=== PATIENT | male | born 1965 | race Caucasian/White ===

== ENCOUNTER 2021-03-10 17:14 | Inpatient (IN) | payer OTHER, MEDICAID, SELFPAY ==
[2021-03-10] VITALS (25 sets, daily range): BP systolic 82–132; BP diastolic 50–85; PULSE 65–94; RESP 12–33; TEMP 36.1–36.4; O2SAT 93–100; BMI 15.5
--- NOTE | 2021-03-10 17:46 | DI.RAD.S_ITS ---
PROCEDURE: XR CHEST 1V INDICATIONS: suspected sepsis TECHNIQUE: One view of the chest was acquired. COMPARISON: None. FINDINGS: Surgical changes and devices: None. Lungs and pleura: Fluffy right mid and lower lung alveolar opacity. The left lung is clear. No visible pleural effusion or pneumothorax. Mediastinum: Mediastinal contours appear normal. Heart size is normal. Bones and chest wall: No suspicious bony lesions. Overlying soft tissues appear unremarkable. IMPRESSION: 1. Right mid and lower lung alveolar opacity may be infectious or aspiration pneumonia. Dictated by: Paula Ledezma M.D. on 03/10/2021 at 18:31 Approved by: Paula Ledezma M.D. on 03/10/2021 at 18:32
[2021-03-10] MEDS: SODIUM CHLORIDE 0.9% 1,000 ML 1000 ML IV ×3 (17:52→22:20)
[2021-03-10 18:06] LABS: Add Manual Diff / Slide Review NO; Basophils Absolute Auto 0 /uL (0-100); Basophils Percent Auto 0.3 % (0-2); Eosinophils Absolute Auto 0 /uL (0-450); Hematocrit 35.6 % (41-53); Hemoglobin 12.4 g/dL (13.5-17.5); Lymphocytes Absolute Auto 300 /uL (1100-4500); Lymphocytes Percent Auto 3.8 % (25-40); Mean Corpuscular HGB Conc 34.7 % (30-36); Mean Corpuscular Hemoglobin 37.9 PG (26-34); Mean Corpuscular Volume 109.2 fL (80-100); Monocytes Absolute Auto 300 /uL (0-900); Monocytes Percent Auto 3.6 % (3-14); Neutrophils Absolute Auto 8000 /uL (1500-7000); Neutrophils Percent Auto 92.3 % (50-75); Platelet Count 157 X10^3/uL (150-400); Red Blood Cell Count 3.26 X10^6/uL (4.5-5.9); Red Cell Distribution Width 14.8 % (11.6-14.8); White Blood Cell Count 8.7 X10^3/uL (4.5-11.0)
--- NOTE | 2021-03-10 18:08 | ED.AMS ---
HPI - Altered Mental Status General Chief Complaint: Altered Mental Status Stated Complaint: low bp,lethargy Time Seen by Provider: 03/10/21 17:59 Source: family and EMS Mode of arrival: EMS Limitations: altered mental status History of Present Illness HPI narrative: Patient Is a 55-year-old male history of down syndrome resides at a family care facility presenting with decreasing mental status. Apparently he is typically verbal but requires assistance with daily living activities. I tenderness became nonverbal extremely lethargic area there was reports of a low glucose from the home however when EMS arrived glucose was 98 and he was hypotensive with systolic in the 70s. It has improved with fluids he now to systolic in the 100s. He is more awake but not able to answer questions or follow commands. Related Data Home Medications Medication Instructions Recorded Confirmed cyanocobalamin (vitamin B-12) 250 250 mcg PO DAILY 03/10/21 03/10/21 mcg tablet (Vitamin B-12) docusate sodium 100 mg capsule 100 mg PO DAILY 03/10/21 03/10/21 (Colace) levothyroxine 75 mcg tablet 75 mcg PO DAILY 03/10/21 03/10/21 (Synthroid) levothyroxine 75 mcg tablet 150 mcg PO WEEKLY 03/10/21 03/10/21 (Synthroid) lorazepam 0.5 mg tablet (Ativan) 0.5 mg PO BEDTIME PRN 03/10/21 03/10/21 multivitamin with minerals (Men's 1 tab PO DAILY 03/10/21 03/10/21 One Daily) Allergies Allergy/AdvReac Type Severity Reaction Status Date / Time ampicillin Allergy Unknown Verified 03/10/21 18:28 Review of Systems Review of Systems ROS Unobtainable: Unobtainable due to medical condition Patient History Medical History (Updated 03/10/21 @ 21:59 by ERICKA Cali) Down's syndrome Hypothyroidism Family History (Updated 03/10/21 @ 23:06 by ERICKA Cali) Father Pancreatic cancer Lung cancer Other Adopted Social History household members: caregiver Smoking Status: Never smoker alcohol intake: never Smoking Status: Never smoker Substance Use Type: does not use Exam Initial Vital Signs Initial Vital Signs: Vital Signs Pulse Rate 75 03/10/21 17:20 Pulse Oximetry 98 03/10/21 17:20 GENERAL: Alert 55-year-old male down syndrome HEENT: Head atraumatic,EOMI, pupils reactive, face symmetric, dry mucous membranes CARDIOVASCULAR: Regular rate and rhythm without murmurs, rubs or gallops. RESPIRATORY: Breath sounds equal bilaterally, no wheezes rales or rhonchi. ABDOMEN: Soft, nontender. Normoactive bowel sounds all 4 quadrants. No guarding or rebound. : No CVA tenderness EXTREMITIES: Normal range of motion, no clubbing or edema. Neurovascularly intact NEUROLOGICAL: No cranial nerve deficit moving all extremities SKIN: Warm, dry, no laceration, no petechiae, no rashes or lesions. Course Orders Ordered: ED Orders 03/10/21 17:20 Blood Culture Stat 03/10/21 17:46 XR chest 1V Stat EKG-12 Lead Stat 03/10/21 17:48 Complete Blood Count AUTO DIFF Stat Comprehensive Metabolic Panel Stat Lactate (Lactic Acid) Stat Lipase Stat Procalcitonin Stat Thyroid Stimulating Hormone Stat 03/10/21 18:17 Urine Culture Stat Urine Microscopic Stat 03/10/21 18:56 COVID19 - ADMIT (WRAPPER DIPPER swab/PCR) Stat 03/10/21 19:22 CT head/brain wo con Stat Acetaminophen (Acetaminophen 325 Mg Tablet) 650 mg PO Q6HR PRN PRN Reason: Fever/Mild Pain (1-3) Docusate Sodium (Docusate 100 Mg Capsule) 100 mg PO DAILY MERON Enoxaparin Sodium (Enoxaparin 40 Mg/0.4 Ml Syringe) 40 mg SUBCUT DAILY MERON Sodium Chloride (Normal Saline 0.9%) 1,000 mls @ 175 mls/hr IV CONT MERON Last Admin: 03/10/21 23:24 Dose: 175 mls/hr Documented by: JUAN Vancomycin HCl (Vancomycin) 750 mg in 150 mls @ 100 mls/hr IV Q12H MERON Levofloxacin (Levaquin) 750 mg in 150 mls @ 100 mls/hr IV Q24H MERON Levothyroxine Sodium (Levothyroxine 75 Mcg Tablet) 150 mcg PO DAILY@0600 MERON Lorazepam (Lorazepam 0.5 Mg Tablet) 0.5 mg PO BEDTIME PRN PRN Reason: Sleep Lorazepam (Lorazepam 2 Mg/Ml Inj) 0.5 mg IV Q6HR PRN PRN Reason: Anxiety Last Admin: 03/10/21 23:21 Dose: 0.5 mg Documented by: JUAN Naloxone HCl (Naloxone 0.4 Mg/Ml Vial) 0.2 mg IV Q2MIN PRN PRN Reason: Opiate Reversal Ondansetron HCl (Ondansetron 4 Mg/2 Ml Inj) 4 mg IV Q6HR PRN PRN Reason: Nausea And Vomiting Pantoprazole Sodium (Pantoprazole 40 Mg Vial) 40 mg IV DAILY MERON Vancomycin HCl (Vancomycin Per Pharmacy) 1 request MISC NOW ONE Stop: 03/10/21 21:53 Discontinued Medications Sodium Chloride (Normal Saline 0.9%) 1,000 mls @ 1,000 mls/hr IV BOLUS ONE Stop: 03/10/21 18:45 Last Infusion: 03/10/21 18:26 Dose: 0 mls/hr Documented by: Admin: 03/10/21 17:52 Dose: 1,000 mls/hr Documented by: TORIN Sodium Chloride (Normal Saline 0.9%) 1,000 mls @ 1,000 mls/hr IV BOLUS ONE Stop: 03/10/21 19:22 Last Infusion: 03/10/21 19:40 Dose: 0 mls/hr Documented by: Admin: 03/10/21 18:25 Dose: 1,000 mls/hr Documented by: TORIN Levofloxacin (Levaquin) 750 mg in 150 mls @ 100 mls/hr IV NOW ONE Stop: 03/10/21 20:34 Last Infusion: 03/10/21 21:36 Dose: 0 mls/hr Documented by: Admin: 03/10/21 19:18 Dose: 100 mls/hr Documented by: CORBY Sodium Chloride (Normal Saline 0.9%) 1,392 mls @ 464 mls/hr 30 ml/kg infuse over 3 hr (1392 ml) IV NOW ONE Stop: 03/10/21 22:13 Last Admin: 03/10/21 20:05 Dose: 464 mls/hr Documented by: CORBY Vancomycin HCl (Vancomycin) 750 mg in 150 mls @ 150 mls/hr IV NOW ONE Stop: 03/10/21 21:53 Last Admin: 03/10/21 23:24 Dose: 150 mls/hr Documented by: JUAN Sodium Chloride (Normal Saline 0.9%) 1,000 mls @ 1,000 mls/hr IV BOLUS ONE Stop: 03/10/21 21:53 Last Admin: 03/10/21 22:20 Dose: 1,000 mls/hr Documented by: JUAN Levofloxacin (Levaquin) 750 mg in 150 mls @ 100 mls/hr IV Q24H [facility] Levofloxacin (Levaquin) 150 mls @ 100 mls/hr IV Q24H [facility] Vital Signs Vital signs: Vital Signs - 8 hr 03/10/21 17:23 03/10/21 17:24 03/10/21 17:30 Temperature 97.6 F Pulse Rate 78 75 77 Respiratory Rate 22 14 13 Blood Pressure 88/51 L 92/50 L 104/57 L Pulse Oximetry 99 98 100 03/10/21 18:00 03/10/21 18:01 03/10/21 18:15 Temperature Pulse Rate 73 79 90 Respiratory Rate 14 13 18 Blood Pressure 100/52 L 101/55 L Pulse Oximetry 100 100 98 03/10/21 18:19 03/10/21 18:30 03/10/21 18:45 Temperature Pulse Rate 80 67 75 Respiratory Rate 18 12 13 Blood Pressure 102/52 L 90/53 L 90/52 L Pulse Oximetry 95 100 100 03/10/21 19:00 03/10/21 19:15 03/10/21 19:44 Temperature Pulse Rate 78 72 79 Respiratory Rate Blood Pressure 104/65 97/56 L Pulse Oximetry 98 100 100 03/10/21 19:45 03/10/21 20:00 03/10/21 20:13 Temperature Pulse Rate 71 80 85 Respiratory Rate 17 18 33 H Blood Pressure 82/55 L 110/71 Pulse Oximetry 100 95 96 03/10/21 20:16 03/10/21 20:30 03/10/21 20:46 Temperature Pulse Rate 94 H 65 84 Respiratory Rate 24 18 26 H Blood Pressure 88/61 L 86/50 L 89/53 L Pulse Oximetry 93 100 96 MDM - Altered Mental Status Lab Data Result diagrams: 03/10/21 17:48 03/10/21 17:48 Labs: Lab Results 03/10/21 03/10/21 03/10/21 Range/Units 17:48 17:48 17:48 WBC 8.7 (4.5-11.0) X10^3/uL RBC 3.26 L (4.5-5.9) X10^6/uL Hgb 12.4 L (13.5-17.5) g/dL Hct 35.6 L (41-53) % MCV 109.2 H (80-100) fL MCH 37.9 H (26-34) PG MCHC 34.7 (30-36) % RDW 14.8 (11.6-14.8) % Plt Count 157 (150-400) X10^3/uL Neut % (Auto) 92.3 H (50-75) % Lymph % (Auto) 3.8 L (25-40) % [place] % (Auto) 3.6 (3-14) % Eos % (Auto) 0.0 L (2-4) % Baso % (Auto) 0.3 (0-2) % Neut # (Auto) 8000 H (5589-8744) /uL Lymph # (Auto) 300 L (4893-6242) /uL [place] # (Auto) 300 (0-900) /uL Eos # (Auto) 0 (0-450) /uL Baso # (Auto) 0 (0-100) /uL Sodium 140 (137-145) mmol/L Potassium 3.6 (3.4-5.1) mmol/L Chloride 106 (98-107) mmol/L Carbon Dioxide 30 (22-32) mmol/L BUN 15 (9-20) mg/dL Creatinine 0.65 L (0.66-1.25) mg/dL Estimated GFR > 60.0 (>60) mL/min BUN/Creatinine Ratio 23.1 H (6-22) Glucose 66 L (70-100) mg/dL Lactate 3.3 H (0.7-2.1) mmol/L Calcium 8.5 (8.4-10.2) mg/dL Total Bilirubin 0.6 (0.2-1.3) mg/dL AST 26 (17-59) IU/L ALT 20 (<50) IU/L Alkaline Phosphatase 57 (38-126) U/L Total Protein 5.8 L (6.3-8.2) g/dL Albumin 2.9 L (3.5-5.0) g/dL Globulin 2.9 (1.7-4.1) g/dL Albumin/Globulin Ratio 1.0 (1.0-2.8) Lipase 53 (23-300) U/L Procalcitonin 0.31 (<0.5) ng/mL TSH (0.47-4.68) uIU/mL Urine RBC (0-5/HPF) Urine WBC (0-5/HPF) Ur Squamous Epith Cells (0-5/HPF) Urine Bacteria (None) Hyaline Casts (None) Granular Casts (None) Urine Mucus (Negative) Ur Culture Indicated? SARS-CoV-2 (PCR) (Negative) 03/10/21 03/10/21 03/10/21 Range/Units 17:48 18:17 18:56 WBC (4.5-11.0) X10^3/uL RBC (4.5-5.9) X10^6/uL Hgb (13.5-17.5) g/dL Hct (41-53) % MCV (80-100) fL MCH (26-34) PG MCHC (30-36) % RDW (11.6-14.8) % Plt Count (150-400) X10^3/uL Neut % (Auto) (50-75) % Lymph % (Auto) (25-40) % [place] % (Auto) (3-14) % Eos % (Auto) (2-4) % Baso % (Auto) (0-2) % Neut # (Auto) (6084-6756) /uL Lymph # (Auto) (9127-3590) /uL [place] # (Auto) (0-900) /uL Eos # (Auto) (0-450) /uL Baso # (Auto) (0-100) /uL Sodium (137-145) mmol/L Potassium (3.4-5.1) mmol/L Chloride (98-107) mmol/L Carbon Dioxide (22-32) mmol/L BUN (9-20) mg/dL Creatinine (0.66-1.25) mg/dL Estimated GFR (>60) mL/min BUN/Creatinine Ratio (6-22) Glucose (70-100) mg/dL Lactate (0.7-2.1) mmol/L Calcium (8.4-10.2) mg/dL Total Bilirubin (0.2-1.3) mg/dL AST (17-59) IU/L ALT (<50) IU/L Alkaline Phosphatase (38-126) U/L Total Protein (6.3-8.2) g/dL Albumin (3.5-5.0) g/dL Globulin (1.7-4.1) g/dL Albumin/Globulin Ratio (1.0-2.8) Lipase (23-300) U/L Procalcitonin (<0.5) ng/mL TSH 31.4 H (0.47-4.68) uIU/mL Urine RBC 5-10/hpf H (0-5/HPF) Urine WBC 5-10/hpf H (0-5/HPF) Ur Squamous Epith Cells 0-1 /hpf (0-5/HPF) Urine Bacteria Few (2-10) H (None) Hyaline Casts 1-5/lpf (None) Granular Casts 1-5/lpf (None) Urine Mucus 1+ H (Negative) Ur Culture Indicated? Specimen cultured SARS-CoV-2 (PCR) Negative (Negative) 03/10/21 Range/Units 20:10 WBC (4.5-11.0) X10^3/uL RBC (4.5-5.9) X10^6/uL Hgb (13.5-17.5) g/dL Hct (41-53) % MCV (80-100) fL MCH (26-34) PG MCHC (30-36) % RDW (11.6-14.8) % Plt Count (150-400) X10^3/uL Neut % (Auto) (50-75) % Lymph % (Auto) (25-40) % [place] % (Auto) (3-14) % Eos % (Auto) (2-4) % Baso % (Auto) (0-2) % Neut # (Auto) (9387-7445) /uL Lymph # (Auto) (5028-7238) /uL [place] # (Auto) (0-900) /uL Eos # (Auto) (0-450) /uL Baso # (Auto) (0-100) /uL Sodium (137-145) mmol/L Potassium (3.4-5.1) mmol/L Chloride (98-107) mmol/L Carbon Dioxide (22-32) mmol/L BUN (9-20) mg/dL Creatinine (0.66-1.25) mg/dL Estimated GFR (>60) mL/min BUN/Creatinine Ratio (6-22) Glucose (70-100) mg/dL Lactate 1.3 (0.7-2.1) mmol/L Calcium (8.4-10.2) mg/dL Total Bilirubin (0.2-1.3) mg/dL AST (17-59) IU/L ALT (<50) IU/L Alkaline Phosphatase (38-126) U/L Total Protein (6.3-8.2) g/dL Albumin (3.5-5.0) g/dL Globulin (1.7-4.1) g/dL Albumin/Globulin Ratio (1.0-2.8) Lipase (23-300) U/L Procalcitonin (<0.5) ng/mL TSH (0.47-4.68) uIU/mL Urine RBC (0-5/HPF) Urine WBC (0-5/HPF) Ur Squamous Epith Cells (0-5/HPF) Urine Bacteria (None) Hyaline Casts (None) Granular Casts (None) Urine Mucus (Negative) Ur Culture Indicated? SARS-CoV-2 (PCR) (Negative) Point of Care Testing Glucose POC 98 Imaging Data Chest x-ray: Radiologist's Impression: PROCEDURE:? XR CHEST 1V ? INDICATIONS:? suspected sepsis ? TECHNIQUE:? One view of the chest was acquired.? ? COMPARISON:? None. ? FINDINGS:? ? Surgical changes and devices:? None.? ? Lungs and pleura:? Fluffy right mid and lower lung alveolar opacity.? The left lung is clear.? No visible pleural effusion or pneumothorax. ? Mediastinum:? Mediastinal contours appear normal.? Heart size is normal.? ? Bones and chest wall:? No suspicious bony lesions.? Overlying soft tissues appear unremarkable.? ? IMPRESSION:? 1. Right mid and lower lung alveolar opacity may be infectious or aspiration pneumonia.? ? ? Dictated by: Paula Ledezma M.D. on 03/10/2021 at 18:31 ? ? Approved by: Paula Ledezma M.D. on 03/10/2021 at 18:32 ? ECG Data Interpretation: Possible atrial fibrillation loss of artifact although in using icy P-waves but rate is irregular EKG 2. artifact MDM Narrative Medical decision making narrative: Patient is found to have UTI and probable aspiration pneumonia and sepsis. Mom is at bedside he should she is not back at his baseline mental status. He continues to be hypotensive although it does seem to be responding to fluids. His long discussion with mom about need for possible vasopressors and code status. At this time she really does not want any aggressive measures to be taken but does agree with IV fluids and antibiotics. She would like him to be comfortable. I have filled out a POLST form with her. Discharge Plan Departure Patient Disposition: Admitted As Inpatient Clinical Impression: Acute UTI, Pneumonia Admit Date/Time: 03/10/21 20:56 Admit Provider: Dilcia Mijares
[2021-03-10 18:13] LABS: Alanine Aminotransferase 20 IU/L (<50); Albumin 2.9 g/dL (3.5-5.0); Alkaline Phosphatase 57 U/L (38-126); Aspartate Aminotransferase 26 IU/L (17-59); BUN Creatinine Ratio 23.1 (6-22); Bilirubin Total 0.6 mg/dL (0.2-1.3); Blood Urea Nitrogen 15 mg/dL (9-20); Calcium 8.5 mg/dL (8.4-10.2); Carbon Dioxide 30 mmol/L (22-32); Chloride 106 mmol/L (98-107); Estimated Glomerular Filt Rate > 60.0 mL/min (>60); Globulin 2.9 g/dL (1.7-4.1); Glucose 66 mg/dL (70-100); HEMOLYSIS 26 (0-50); Lactate (Lactic Acid) 3.3 mmol/L (0.7-2.1); Lipase 53 U/L (23-300); Potassium 3.6 mmol/L (3.4-5.1); Sodium 140 mmol/L (137-145); Total Protein 5.8 g/dL (6.3-8.2)
[2021-03-10 18:29] LABS: Procalcitonin 0.31 ng/mL (<0.5)
[2021-03-10 18:52] LABS: Bacteria Urine Few (2-10); Culture Indicated Urine Specimen Cultured; Granular Casts Urine 1-5/LPF; Hyaline Casts Urine 1-5/LPF; Mucus Urine 1+ (Negative); RBC Urine 5-10/HPF (0-5/HPF); Squamous Epithelial Cell Urine 0-1 /HPF (0-5/HPF); WBC Urine 5-10/HPF (0-5/HPF)
[2021-03-10] MEDS: levoFLOXacin 750 MG/150 ML PIGGYBACK 100 MG IV (19:18)
[2021-03-10 19:22] LABS: Thyroid Stimulating Hormone 31.4 uIU/mL (0.47-4.68)
--- NOTE | 2021-03-10 19:22 | DI.CT.S_ITS ---
PROCEDURE: CT HEAD/BRAIN WO CON INDICATIONS: decreased mental status TECHNIQUE: Noncontrast 4.5 mm thick angled axial sections acquired from the foramen magnum to the vertex, with coronal and sagittal reformats. For radiation dose reduction, the following was used: automated exposure control, adjustment of mA and/or kV according to patient size. COMPARISON: None. FINDINGS: Image quality: Excellent. CSF spaces: Basal cisterns are patent. No extra-axial fluid collections. The ventricles are symmetrically prominent. Brain: No intracranial bleeds or masses. There is increased cerebral volume loss for age, with resultant ventricular and sulcal prominence. There is focal hypodensity and loss of jenkins-white matter differentiation involving the white and jenkins matter of the right anterior temporal lobe. Similar focus of hypodensity is present in the anterior right temporal lobe subcortical white matter. There are periventricular and deep white matter chronic small vessel ischemic changes. There is intracranial internal carotid artery atherosclerosis. Skull and face: Calvarium and visualized facial bones appear intact, without suspicious lesions. Sinuses: Visualized sinuses and mastoids are clear. IMPRESSION: 1. No CT evidence of acute hemorrhage. 2. Hypodensities involving the right temporal and right frontal lobe suggesting prior infarcts, chronicity uncertain. Correlate with history and any prior imaging. Dictated by: Paula Ledezma M.D. on 03/10/2021 at 20:02 Approved by: Paula Ledezma M.D. on 03/10/2021 at 20:08
[2021-03-10 19:51] LABS: COVID19 - ADMIT (NP swab/PCR) Negative (Negative)
[2021-03-10 19:55] LABS: Reflexed Lactate in 2 Hours Y
[2021-03-10] MEDS: SODIUM CHLORIDE 0.9% 464 ML IV (20:05)
[2021-03-10 20:32] LABS: Lactate 2HR (Lactic Acid Rflx) 1.3 mmol/L (0.7-2.1)
--- NOTE | 2021-03-10 21:42 | P.HP_ITS ---
History of Present Illness History of Present Illness Date Patient Seen: 03/10/21 Time Patient Seen: 21:42 Chief complaint: low bp,lethargy Narrative: Edgar Rehman is a 55 year old male with profound down syndrome hypothyroidism, and a resident of [facility]'s adult family home, was brought into the emergency department with decreased responsiveness. Patient is unable to give me a history due to his being almost nonverbal and it was difficult to obtain hi story from his mother as well. Per report from the ED provider, the patient became very lethargic and nonverbal at his adult family home. Patient had a very soft blood pressure on presentation to the emergency department with a systolic in the 70s and was non communicative at that time. I have no other history on his presentation to the emergency department. Bruno was placed in the ED. The patient was found to have a urinary tract infection on his UA and chest x-ray seemed to point to a right lower lobe pneumonia probable aspiration. Patient is afebrile, blood pressure 130/85, heart rate 90, respirations 24, oxygen saturation of 98% on 3 L, his weight is 40.5 kg with a BMI 15.5. He is mildly anemic with a hemoglobin of 12.4 hematocrit of 35.6 platelet count 157 he has a mild left shift of 8000 neutrophils, his creatinine is 0.65, glucose 66, albumin 2.9, and a TSH of 31.4. UA indicates a year urinary tract infection with criteria for culture and COVID-19 PCR is negative. Patient History Medical History (Updated 03/10/21 @ 21:59 by ERICKA Cali) Down's syndrome Hypothyroidism Family & Social History Family History (Updated 03/10/21 @ 23:06 by ERICKA Cali) Father Pancreatic cancer Lung cancer Other Adopted Social History: Lives in an adult family home. Per the patient's adoptive mother, he lived with her until he was 50 when she was unable to care for him anymore. She states he has been at [facility] since July of this year. Tobacco & Substance use: Smoking Status Never smoker Substance Use Type does not use Meds Home Medications and Allergies Home Medications Medication Instructions Recorded Confirmed Type cyanocobalamin (vitamin B-12) 250 250 mcg PO DAILY 03/10/21 03/10/21 History mcg tablet (Vitamin B-12) docusate sodium 100 mg capsule 100 mg PO DAILY 03/10/21 03/10/21 History (Colace) levothyroxine 75 mcg tablet 75 mcg PO DAILY 03/10/21 03/10/21 History (Synthroid) levothyroxine 75 mcg tablet 150 mcg PO WEEKLY 03/10/21 03/10/21 History (Synthroid) lorazepam 0.5 mg tablet (Ativan) 0.5 mg PO BEDTIME PRN 03/10/21 03/10/21 History multivitamin with minerals (Men's 1 tab PO DAILY 03/10/21 03/10/21 History One Daily) Allergies Allergy/AdvReac Type Severity Reaction Status Date / Time ampicillin Allergy Unknown Verified 03/10/21 18:28 Review of Systems Review of Systems ROS: Yes unobtainable due to mental condition (Non-verbal) Exam Vital Signs (past 8 hours): - 03/10/21 17:20 03/10/21 17:23 03/10/21 17:24 Temperature 97.6 F Pulse Rate 75 78 75 Respiratory Rate 22 14 Blood Pressure 88/51 L 92/50 L Pulse Oximetry 98 99 98 03/10/21 17:30 03/10/21 18:00 03/10/21 18:01 Temperature Pulse Rate 77 73 79 Respiratory Rate 13 14 13 Blood Pressure 104/57 L 100/52 L Pulse Oximetry 100 100 100 03/10/21 18:15 03/10/21 18:19 03/10/21 18:30 Temperature Pulse Rate 90 80 67 Respiratory Rate 18 18 12 Blood Pressure 101/55 L 102/52 L 90/53 L Pulse Oximetry 98 95 100 03/10/21 18:45 03/10/21 19:00 03/10/21 19:15 Temperature Pulse Rate 75 78 72 Respiratory Rate 13 Blood Pressure 90/52 L 104/65 97/56 L Pulse Oximetry 100 98 100 03/10/21 19:44 03/10/21 19:45 03/10/21 20:00 Temperature Pulse Rate 79 71 80 Respiratory Rate 17 18 Blood Pressure 82/55 L Pulse Oximetry 100 100 95 03/10/21 20:13 03/10/21 20:16 03/10/21 20:30 Temperature Pulse Rate 85 94 H 65 Respiratory Rate 33 H 24 18 Blood Pressure 110/71 88/61 L 86/50 L Pulse Oximetry 96 93 100 Oxygen Delivery Method Nasal Cannula Oxygen Flow Rate 3 Narrative Exam Narrative: Gen: Alert, mildly agitated 55 y.o. very thin male, awake and moving HEENT: normocephalic, atraumatic, conjunctiva clear, appears to have some exudate on the right eye, sclera non-icteric, oral mucosa pink and moist Neck: supple, full ROM, no JVD, trachea is midline Resp: Lungs CTA, non-labored breathing CV: RRR, no murmur or rubs Abd: soft, non-tender, normoactive BTs Skin: no lesions or rashes, dry and intact Neuro: GCS 13 Alert/no focal deficits. Speech soft and garbled. Extremities: moves all 4 extremities, is ambulatory, negative Estevan?s sign Psyche: Unable to assess Objective Labs Result Diagrams: 03/10/21 17:48 03/10/21 17:48 Labs: Laboratory Results - last 24 hr 03/10/21 03/10/21 03/10/21 17:48 17:48 17:48 WBC 8.7 RBC 3.26 L Hgb 12.4 L Hct 35.6 L MCV 109.2 H MCH 37.9 H MCHC 34.7 RDW 14.8 Plt Count 157 Neut % (Auto) 92.3 H Lymph % (Auto) 3.8 L [place] % (Auto) 3.6 Eos % (Auto) 0.0 L Baso % (Auto) 0.3 Neut # (Auto) 8000 H Lymph # (Auto) 300 L [place] # (Auto) 300 Eos # (Auto) 0 Baso # (Auto) 0 Sodium 140 Potassium 3.6 Chloride 106 Carbon Dioxide 30 BUN 15 Creatinine 0.65 L Estimated GFR > 60.0 BUN/Creatinine Ratio 23.1 H Glucose 66 L Lactate 3.3 H Calcium 8.5 Total Bilirubin 0.6 AST 26 ALT 20 Alkaline Phosphatase 57 Total Protein 5.8 L Albumin 2.9 L Globulin 2.9 Albumin/Globulin Ratio 1.0 Lipase 53 Procalcitonin 0.31 TSH Urine RBC Urine WBC Ur Squamous Epith Cells Urine Bacteria Hyaline Casts Granular Casts Urine Mucus Ur Culture Indicated? SARS-CoV-2 (PCR) 03/10/21 03/10/21 03/10/21 17:48 18:17 18:56 WBC RBC Hgb Hct MCV MCH MCHC RDW Plt Count Neut % (Auto) Lymph % (Auto) [place] % (Auto) Eos % (Auto) Baso % (Auto) Neut # (Auto) Lymph # (Auto) [place] # (Auto) Eos # (Auto) Baso # (Auto) Sodium Potassium Chloride Carbon Dioxide BUN Creatinine Estimated GFR BUN/Creatinine Ratio Glucose Lactate Calcium Total Bilirubin AST ALT Alkaline Phosphatase Total Protein Albumin Globulin Albumin/Globulin Ratio Lipase Procalcitonin TSH 31.4 H Urine RBC 5-10/hpf H Urine WBC 5-10/hpf H Ur Squamous Epith Cells 0-1 /hpf Urine Bacteria Few (2-10) H Hyaline Casts 1-5/lpf Granular Casts 1-5/lpf Urine Mucus 1+ H Ur Culture Indicated? Specimen cultured SARS-CoV-2 (PCR) Negative 03/10/21 20:10 WBC RBC Hgb Hct MCV MCH MCHC RDW Plt Count Neut % (Auto) Lymph % (Auto) [place] % (Auto) Eos % (Auto) Baso % (Auto) Neut # (Auto) Lymph # (Auto) [place] # (Auto) Eos # (Auto) Baso # (Auto) Sodium Potassium Chloride Carbon Dioxide BUN Creatinine Estimated GFR BUN/Creatinine Ratio Glucose Lactate 1.3 Calcium Total Bilirubin AST ALT Alkaline Phosphatase Total Protein Albumin Globulin Albumin/Globulin Ratio Lipase Procalcitonin TSH Urine RBC Urine WBC Ur Squamous Epith Cells Urine Bacteria Hyaline Casts Granular Casts Urine Mucus Ur Culture Indicated? SARS-CoV-2 (PCR) Assessment & Plan Assessment & Plan narrative: Maximus Rehman is admitted to the inpatient unit for treatment of a urinary tract infection and a probable aspiration pneumonia. 1. Urinary tract infection and a probable aspiration pneumonia acute and present on admission * Patient was initiated on IV Levaquin 750 mg once daily and IV vancomycin. This will be continued * Patient will need to be further assessed for swallowing given history of aspiration and current altered mental state * Bruno has been placed 2. Hypothyroidism, very elevated TSH, present on admission * TSH was 31.4 * Have ordered a free T4 however the patient was not cooperative with a lab draw this evening will drawn the morning with the rest of his labs * He is written for receiving levothyroxine 150 mg once a week which does not seem to be therapeutic. I have ordered this to start daily. 3. Down syndrome, chronic * We have to rely on communication with his mother for his needs 4. Advance care planning * His mother Dilcia Fountain is his DPOA. I reviewed the pulse that was completed with her in the emergency department which stated he was to be DNR/DNI, comfort measures only. After more discussion with her he continues to be DNR DNI however she does want limited interventions such as antibiotics. I have included a revised POLST is for her to sign in the morning. VTE Prophylaxis: Wells risk score 1.5 Enoxaparin 40 mg subQ once daily Patient is admitted to the inpatient service due to the severity of disease, risks of further disease progression and this stay is expected to exceed 2 midnights. FEN: IV fluids: NS at 100 ml/hour, diet: NPO, otherwise general, labs: CBC, BMP, am Consultants None Dispo: probable discharge back to [facility] Code status: DNR/DNI as discussed with the patient's mother and DPOA, Selena Fountain. [X] I have utilized all available immediate resources to obtain, update, or review of the patient's current medications COVID-19 COVID-19 status: Negative Result date/Date tested (Pos, Neg/Pending): 03/10/21 Time Spent With Patient Critical Care time: I spent a total of [] minutes of critical care time on this patient's care today; this time is exclusive of procedural time. Scores GCS Demetrius coma scale eye opening: Spontaneous [place] coma scale verbal response: Confused Demetrius coma scale motor response: Localising [place] coma scale total score: 13 Quality MIPS - Admit I confirm the patient?s Advance Care Plan is present, Code status is documented, Surrogate decision maker is in patient?s record [If Yes, STOP here]: Yes MIPS - DC The patient has current or prior documentation of left ventricular ejection fraction (LVEF) less than 40%, or moderate or severely depressed left ventricular systolic function.: No
[2021-03-10] MEDS: LORazepam 2 MG/ML INJ 0.5 MG IV (23:21)
[2021-03-10] MEDS: SODIUM CHLORIDE 0.9% 1,000 ML 175 ML IV (23:24)
[2021-03-10] MEDS: VANCOMYCIN 750 MG/150 ML PIGGYBACK 150 MG IV (23:24)
[2021-03-11] VITALS (8 sets, daily range): BP systolic 90–129; BP diastolic 69–96; PULSE 40–81; RESP 13–17; TEMP 36.5–37.7; O2SAT 93–100
--- NOTE | 2021-03-11 06:20 | PC.NURSE ---
patient arrived from ED visibly anxious and agitated. mother contacted to complete admission. frequent reassurance and stimuli reduction aided in calming patient and making comfortable. physical patient care difficult as patient is extremely fidgety with sudden, jerking movements combined with anxiety of general situation and place. recoils when touched unless generous warnings and reassurances beforehand are used. attempts to remove blood pressure cuffs and frequently removes nasal cannula. last O2 sat 93% on RA, leaving nasal cannula off as patient will immediately remove it upon leaving room. lab unable to complete draws due to patient moving away from equipment as best they can, provider notified. patient is now calm and resting comfortably in bed.
[2021-03-11] MEDS: SODIUM CHLORIDE 0.9% 1,000 ML 175 ML IV ×3 (06:47→18:29)
[2021-03-11] MEDS: VANCOMYCIN 750 MG/150 ML PIGGYBACK 150 MG IV (09:02)
[2021-03-11] MEDS: ENOXAPARIN 40 MG/0.4 ML SYRINGE SUBCUT (09:03)
[2021-03-11] MEDS: PANTOPRAZOLE 40 MG VIAL IV (09:03)
[2021-03-11 09:34] LABS: Add Manual Diff / Slide Review NO; Basophils Absolute Auto 0 /uL (0-100); Basophils Percent Auto 0.3 % (0-2); Eosinophils Absolute Auto 0 /uL (0-450); Eosinophils Percent Auto 0.3 % (2-4); Hematocrit 30.4 % (41-53); Hemoglobin 10.6 g/dL (13.5-17.5); Lymphocytes Absolute Auto 600 /uL (1100-4500); Lymphocytes Percent Auto 4.6 % (25-40); Mean Corpuscular HGB Conc 34.8 % (30-36); Mean Corpuscular Hemoglobin 37.4 PG (26-34); Mean Corpuscular Volume 107.6 fL (80-100); Monocytes Absolute Auto 400 /uL (0-900); Monocytes Percent Auto 2.8 % (3-14); Neutrophils Absolute Auto 12100 /uL (1500-7000); Platelet Count 153 X10^3/uL (150-400); Red Blood Cell Count 2.83 X10^6/uL (4.5-5.9); Red Cell Distribution Width 14.7 % (11.6-14.8); White Blood Cell Count 13.1 X10^3/uL (4.5-11.0)
[2021-03-11 09:42] LABS: BUN Creatinine Ratio 19.7 (6-22); Blood Urea Nitrogen 12 mg/dL (9-20); Calcium 8.2 mg/dL (8.4-10.2); Carbon Dioxide 25 mmol/L (22-32); Chloride 111 mmol/L (98-107); Estimated Glomerular Filt Rate > 60.0 mL/min (>60); Glucose 82 mg/dL (70-100); HEMOLYSIS < 15 (0-50); Sodium 140 mmol/L (137-145)
[2021-03-11 10:00] LABS: Free T4, Direct Thyroxine 1.13 ng/dL (0.78-2.19)
--- NOTE | 2021-03-11 10:11 | P.PN_ITS ---
Subjective Subjective Date Patient Seen: 03/11/21 Time Patient Seen: 10:12 Interval history: Patient unable to participate in subjective exam. Exam Vital Signs (past 8 hours): - 03/11/21 04:06 03/11/21 07:40 03/11/21 07:58 Temperature 98.5 F 98.0 F Pulse Rate 75 40 L 52 L Respiratory Rate 17 13 Blood Pressure 129/91 H 104/83 Pulse Oximetry 93 93 100 Oxygen Delivery Method Nasal Cannula Oxygen Flow Rate 0 Narrative Exam Narrative: Gen: Alert, 55 y.o. very thin male HEENT: normocephalic, atraumatic, conjunctiva clear, appears to have some exudate on the right eye, sclera non-icteric, oral mucosa pink and moist Neck: supple, full ROM, no JVD, trachea is midline Resp: Lungs CTA, non-labored breathing CV: RRR, no murmur or rubs Abd: soft, non-tender, normoactive BTs : Bruno in place Skin: no lesions or rashes, dry and intact Neuro:Alert/no focal deficits. Speech soft and garbled. occasional yes/no appropriate to questions. Extremities: moves all 4 extremities, no edema or joint effusions Psyche:? Unable to assess Objective Labs Result Diagrams: 03/11/21 08:55 03/11/21 08:55 Labs: Laboratory Results - last 24 hr 03/10/21 03/10/21 03/10/21 17:48 17:48 17:48 WBC 8.7 RBC 3.26 L Hgb 12.4 L Hct 35.6 L MCV 109.2 H MCH 37.9 H MCHC 34.7 RDW 14.8 Plt Count 157 Neut % (Auto) 92.3 H Lymph % (Auto) 3.8 L [place] % (Auto) 3.6 Eos % (Auto) 0.0 L Baso % (Auto) 0.3 Neut # (Auto) 8000 H Lymph # (Auto) 300 L [place] # (Auto) 300 Eos # (Auto) 0 Baso # (Auto) 0 Sodium 140 Potassium 3.6 Chloride 106 Carbon Dioxide 30 BUN 15 Creatinine 0.65 L Estimated GFR > 60.0 BUN/Creatinine Ratio 23.1 H Glucose 66 L Lactate 3.3 H Calcium 8.5 Total Bilirubin 0.6 AST 26 ALT 20 Alkaline Phosphatase 57 Total Protein 5.8 L Albumin 2.9 L Globulin 2.9 Albumin/Globulin Ratio 1.0 Lipase 53 Procalcitonin 0.31 TSH Urine RBC Urine WBC Ur Squamous Epith Cells Urine Bacteria Hyaline Casts Granular Casts Urine Mucus Ur Culture Indicated? SARS-CoV-2 (PCR) 03/10/21 03/10/21 03/10/21 17:48 18:17 18:56 WBC RBC Hgb Hct MCV MCH MCHC RDW Plt Count Neut % (Auto) Lymph % (Auto) [place] % (Auto) Eos % (Auto) Baso % (Auto) Neut # (Auto) Lymph # (Auto) [place] # (Auto) Eos # (Auto) Baso # (Auto) Sodium Potassium Chloride Carbon Dioxide BUN Creatinine Estimated GFR BUN/Creatinine Ratio Glucose Lactate Calcium Total Bilirubin AST ALT Alkaline Phosphatase Total Protein Albumin Globulin Albumin/Globulin Ratio Lipase Procalcitonin TSH 31.4 H Urine RBC 5-10/hpf H Urine WBC 5-10/hpf H Ur Squamous Epith Cells 0-1 /hpf Urine Bacteria Few (2-10) H Hyaline Casts 1-5/lpf Granular Casts 1-5/lpf Urine Mucus 1+ H Ur Culture Indicated? Specimen cultured SARS-CoV-2 (PCR) Negative 03/10/21 03/11/21 03/11/21 20:10 08:55 08:55 WBC 13.1 H D RBC 2.83 L Hgb 10.6 L Hct 30.4 L MCV 107.6 H MCH 37.4 H MCHC 34.8 RDW 14.7 Plt Count 153 Neut % (Auto) 92.0 H Lymph % (Auto) 4.6 L [place] % (Auto) 2.8 L Eos % (Auto) 0.3 L Baso % (Auto) 0.3 Neut # (Auto) 63114 H Lymph # (Auto) 600 L [place] # (Auto) 400 Eos # (Auto) 0 Baso # (Auto) 0 Sodium 140 Potassium 4.0 Chloride 111 H Carbon Dioxide 25 BUN 12 Creatinine 0.61 L Estimated GFR > 60.0 BUN/Creatinine Ratio 19.7 Glucose 82 Lactate 1.3 Calcium 8.2 L Total Bilirubin AST ALT Alkaline Phosphatase Total Protein Albumin Globulin Albumin/Globulin Ratio Lipase Procalcitonin TSH Urine RBC Urine WBC Ur Squamous Epith Cells Urine Bacteria Hyaline Casts Granular Casts Urine Mucus Ur Culture Indicated? SARS-CoV-2 (PCR) PFSH Medical History (Updated 03/10/21 @ 21:59 by ERICKA Cali) Down's syndrome Hypothyroidism Family History (Updated 03/10/21 @ 23:06 by ERICKA Cali) Father Pancreatic cancer Lung cancer Other Adopted Social History household members: caregiver Smoking Status: Never smoker alcohol intake: never Assessment & Plan Assessment & Plan narrative: Maximus Rehman is admitted to the inpatient unit for treatment of a urinary tract infection and a probable aspiration pneumonia. 1. Urinary tract infection and a probable aspiration pneumonia acute and present on admission -Patient was initiated on IV Levaquin 750 mg once daily and IV vancomycin initially. Discontinue vanco today, no risk factors. Continue Levaquin and follow up cultures. -speech therapy eval ordered given possible aspiration. -Bruno has been placed, can remove tomorrow if urine output adequate. 2. Hypothyroidism, very elevated TSH, present on admission -TSH was 31.4, freet4 if 1.13. -home dosing is levothyroxine 150 mg once a week. Given TSH, change to 37.5 mcg daily instead. (slight increase). Repeat TSH and free t4 in 4-6 weeks as an o utpatient. 3. Down syndrome, chronic Dispo: probable discharge back to [facility] in 1-2 once mentation improves to baseline. Code status: DNR/DNI as discussed with the patient's mother and Selena RESENDEZ. Time Spent With Patient Critical Care time: I spent a total of [] minutes of critical care time on this patient's care today; this time is exclusive of procedural time. Quality VTE Deep Vein Thrombosis/Pulmonary Embolism Present on Admission: No
--- NOTE | 2021-03-11 16:47 | CM.DANOTE ---
DCP assessment: Patient is a 55 yr old male with down syndrome. Patient is here for UTI and sepsis. Patient currently lives at [facility] adult [facility] and plan is to return at DC. CM attempted to meet with patient at the bedside but patient is not able to participate in his own Discharge planning. CM called patients mother Robin fishman DPOA at [phone] and left a detailed voice message. CM department will follow up with the state to see if patient has a pillowcase sewer as well that might be able to assist with DC planning CM also called [facility] and left them a voice message to return our call as well to discuss DC plan back to Adult family home when patient is medically stable. I: [employer] medicare Advantage and medicaid P: DC home to Adult family home [facility]. CM department to follow up with them and make sure transportation is available for when the patient is medically stable to DC. Josephine Phillips RN Case Manger Discharge Planning/Care Management Advanced directive, confirm from FAMILY Start: 03/10/21 22:53 Freq: Q24H Status: Active Protocol: Document 03/10/21 22:53 AKP (Rec: 03/10/21 22:53 AKP [id number]) Advance Directive, confirm on record Time 22:53 Person contacted spoke with mother Copy received No CM Discharge Assessment Start: 03/11/21 16:42 Freq: Status: Active Protocol: Document 03/11/21 16:42 HS (Rec: 03/11/21 16:47 HS [id number]) Discharge Planning Assessment Assigned Completion Manager Josephine Phillips RNres habilitation assistant DPOA/Assigned Designee Name Robin Fountain (Mom) Contact Information [phone] Advance Directives? No Advance Directives on File No History Provided By Medical Record Prior Living Arrangements House Household Members caregiver Type of transporation used prior to Relies on Others admit Facility Name Admitted From: [facility] Willing to Return to Facility? Yes Independent with ADL's No Is patient alert and oriented? Yes Caregiver for Another No Comment Patient lives in adult family home [facility]. Comment DC back to adult family home. Barriers to Discharge No Discharge Plan Adult Family Home Transportation Arrangement need to determin transportation Referrals Initiated None needed Whiteboard Updated in Patient Room with Yes name and ext. # of Completion Manager Review Status In Process Next Review Type Continued Stay Review
[2021-03-11] MEDS: levoFLOXacin 750 MG/150 ML PIGGYBACK 100 MG IV (18:29)
[2021-03-11] MEDS: LORazepam 2 MG/ML INJ 0.5 MG IV (19:46)
[2021-03-11 22:25] LABS: BUN Creatinine Ratio 14.7 (6-22); Blood Urea Nitrogen 10 mg/dL (9-20); Calcium 8.2 mg/dL (8.4-10.2); Carbon Dioxide 25 mmol/L (22-32); Chloride 110 mmol/L (98-107); Estimated Glomerular Filt Rate > 60.0 mL/min (>60); Glucose 84 mg/dL (70-100); HEMOLYSIS < 15 (0-50); Potassium 3.7 mmol/L (3.4-5.1); Sodium 139 mmol/L (137-145)
[2021-03-12] VITALS (7 sets, daily range): BP systolic 139; BP diastolic 86; PULSE 52–92; RESP 18; TEMP 36.8–37.4; O2SAT 91–96
[2021-03-12] MEDS: SODIUM CHLORIDE 0.9% 1,000 ML 175 ML IV ×4 (01:32→19:20)
[2021-03-12] MEDS: LORazepam 2 MG/ML INJ 0.5 MG IV (03:47)
[2021-03-12] MEDS: LEVOTHYROXINE 75 MCG TABLET 37.5 MCG PO (06:16)
--- NOTE | 2021-03-12 06:23 | PC.NURSE ---
Pt has been restless most of the night, lorazepam 0.5 mg ivp given twice with minimal effectiveness. Unable to get an accurate blood pressure on pt due to pt moving/increase resltlessnes. will continue to monitor.
[2021-03-12 07:12] LABS: Add Manual Diff / Slide Review NO; BUN Creatinine Ratio 14.7 (6-22); Basophils Absolute Auto 0 /uL (0-100); Basophils Percent Auto 0.7 % (0-2); Blood Urea Nitrogen 10 mg/dL (9-20); Calcium 8.1 mg/dL (8.4-10.2); Carbon Dioxide 24 mmol/L (22-32); Chloride 107 mmol/L (98-107); Eosinophils Absolute Auto 0 /uL (0-450); Eosinophils Percent Auto 0.4 % (2-4); Estimated Glomerular Filt Rate > 60.0 mL/min (>60); Glucose 85 mg/dL (70-100); HEMOLYSIS < 15 (0-50); Hematocrit 28.2 % (41-53); Lymphocytes Absolute Auto 900 /uL (1100-4500); Mean Corpuscular HGB Conc 35.3 % (30-36); Mean Corpuscular Hemoglobin 37.9 PG (26-34); Mean Corpuscular Volume 107.4 fL (80-100); Monocytes Absolute Auto 400 /uL (0-900); Monocytes Percent Auto 6.5 % (3-14); Neutrophils Absolute Auto 4400 /uL (1500-7000); Neutrophils Percent Auto 77.4 % (50-75); Platelet Count 134 X10^3/uL (150-400); Potassium 3.6 mmol/L (3.4-5.1); Red Blood Cell Count 2.63 X10^6/uL (4.5-5.9); Red Cell Distribution Width 14.6 % (11.6-14.8); Sodium 135 mmol/L (137-145); White Blood Cell Count 5.7 X10^3/uL (4.5-11.0)
[2021-03-12] MEDS: PANTOPRAZOLE 40 MG VIAL IV (10:14)
--- NOTE | 2021-03-12 13:55 | ST.IPCSEOM ---
Visit Care Team Role Provider Type Abi Reynolds DO Emergency Provider Physician Referring Provider Specialty: Emergency Medicine Address: [address] [place] [address], [id number] Email: [email or web address] ERICKA Cali Admit Provider Physician Attending Provider Specialty: Internal Medicine Address: [address] [place] [address], [id number] Email: [email or web address] Current Diagnoses Pneumonitis due to inhalation of food and vomit (03/10/21) Past Medical History (Last Updated 03/10/21 @ 21:59 by ERICKA Cali) Down's syndrome (Medical) Hypothyroidism (Medical) Speech-Language Pathology Swallow Evaluation SEAL EXTRUSION OPERATOR Clinical Swallow Evaluation Start: 03/12/21 13:33 Freq: Status: Active Protocol: Document 03/12/21 13:34 LNK (Rec: 03/12/21 13:55 LNK [id number]) Clinical Swallow Evaluation Session Time Visit Start Time 12:10 Visit Stop Time 12:35 Total Visit Minutes 25 Referral Reason for Referral dysphagia Setting Assessment Location Acute Care Visit Type Note Type Initial evaluation Next Note Type Next Note Type Re-evaluation Patient Information Identification Type Name,Wristband History Edgar Rehman is a 55 year old male with profound down syndrome hypothyroidism, and a resident of [facility], was brought into the emergency department with decreased responsiveness . Patient is unable to give me a history due to his being almost nonverbal and it was difficult to obtain history from his mother as well. Per report from the ED provider, the patient became very lethargic and nonverbal at his adult family home. Patient had a very soft blood pressure on presentation to the emergency department with a systolic in the 70s and was non communicative at that time . Chest x-ray inicated right mid and lower lung alveolar opacity may be infectious or aspiration pneumonia. Maximus Rehman was admitted to the inpatient unit for treatment of a urinary tract infection and a probable aspiration pneumonia Subjective Observations Pt was in his bed. He was alert and responded to yes/no questions. He was also observed to say more when asked if he wanted more water. Objective Assessment Mental Status Alert,Responsive,Cooperative Dentition Missing teeth,Decay Lip Function Mild impairment Comment OME was attempted, but pt was reluctant open mouth and was unable to follow directions. Food and Liquid Trials Position During Assessment Upright (90 degrees) Liquids Trialed Ice chips,Thin Solids Trialed Puree,Dysphagia Mechanical Administration Type Tea spoon,Cup single sip,Cup consecutive sips,Straw,Needs some assistance,Dependent feeding Oral Impairment Moderately impaired Oral Phase Comments PO trials were fed to the pt. He did not use his upper lip to clear the spoon; instead the spoon was brought up to his lip and cleared. This appeared to be an immature oral motor skill. He was able to close his mouth to swallow. Pharyngeal Phase Comments Pt swallowed quickly with all trials, not chewing the textured trials. Pt was safely able to tolerate thin liquids with a small WHITE straw and pureed textures without overt s/sx aspiration. Good hyolaryngeal elevation upon palpation and observation .. No cough/choke observed. No wet voicing or breathing noted. Comment A clinical swallow evaluation cannot determine if silent aspiration occurs, which would require an instrumental assessment. Findings Swallowing Function Oropharyngeal phase dysphagia Severity of Swallow Impairment Mildly-moderately impaired Contributing Factors to Swallow Difficulty following Impairment directions,Mastication inefficiency Prognosis Fair Based on Cognitive status,Family support,Bed bound, Comorbidities Impact on Safety and Functioning Risk for aspiration,Risk for inadequate nutrition/hydration Recommendations Instrumental Assessment No Swallowing Treatment Yes Frequency F/u 1x to monitor safety; family education Recommended Solids Puree Recommended Liquids Thin Safety Precautions/Swallowing Feed only when alert,Reduce Recommendations distractions,Remain upright ( 90 degrees) during all oral intake,Upright position at least 30 minutes after meals, Small bites and sips when eating,Slow rate; swallow between bites,Sip by straw only,1 to 1 feeding assistance Medication Recommendations Crushed in Carrier Discharge Recommendations [facility] facility,[facility] estate sales manager care facility Goals Short-term Goals pt will safely tolerate least restrictive diet for nutrition and hydration needs.
--- NOTE | 2021-03-12 15:55 | CM.DPC ---
Addendum entered by Jolynn Garner R.N. 03/13/21 12:35: Patient will be discharged with a aldridge catheter. Called Sara at [facility] to update her on this, and to see if patient will need home health. She stated that patient has had a aldridge before, and they used [facility]. Let her know that this personal financial planner can order [facility] nursing for patient. Had Dr. Franklin sign face to face. Confirmed with Sara that patient's primary provider is Dr. Josephine Nicole, and is supposed to have a telehealth visit at the facility tomorrow. Called Mona at [facility] and left her a message about patient. Faxed over face sheet, face to face, orders, and H&P, for DC Summary is not available. Original Note: DCP Cont: Called Juan Diego at [facility] to get additional information on patient. She indicated that she can arrange for transportation for patient to return to their facility, as his mother is in her 80s, and will not be able to do. She indicated that patient is a two person transfer and total care. He does not use hoier, it scares patient. She also mentioned, he likes to eat, but is a choking hazard. Patient is on a blenderized diet according to Juan Diego. She is prepared to take him back when he is ready to discharge. P: DCP to continue to follow. Patient worked with speech therapy today. He should be able to return home, possibly tomorrow. Jolynn Garner RN/Case Specialist
--- NOTE | 2021-03-12 16:36 | PM.PN.1 ---
Subjective Subjective Interval history: Patient non-verbal with me this morning. Therefore, unable to gather a subjective portion to the note. Exam Vital Signs (past 8 hours): - 03/12/21 09:02 03/12/21 12:32 Temperature 98.2 F Pulse Rate 69 Respiratory Rate 18 Blood Pressure 139/86 Pulse Oximetry 95 91 Oxygen Delivery Method Room Air Oxygen Flow Rate 0 Const Other: Laying in bed comfortably upon entering the room, in no apparent acute distress. Eyes Other: No scleral icterus appreciated. Resp Other: Rhonchi appreciated to right mid-axillary line. No adventitious breath sounds appreciated otherwise. Cardio Other: Regular rate and rhythm. S1 and S2 heart sounds auscultated with no extra heart sounds or murmurs appreciated. No peripheral edema noted. GI Other: Soft, non-distended, non-tender. Bowel sounds present. Skin Other: No kaye skin lesions/abnormalities appreciated. Objective Labs Result Diagrams: 03/12/21 06:50 03/12/21 06:50 Labs: Laboratory Results - last 24 hr 03/11/21 03/12/21 03/12/21 22:00 06:50 06:50 WBC 5.7 D RBC 2.63 L Hgb 10.0 L Hct 28.2 L MCV 107.4 H MCH 37.9 H MCHC 35.3 RDW 14.6 Plt Count 134 L Neut % (Auto) 77.4 H Lymph % (Auto) 15.0 L [place] % (Auto) 6.5 Eos % (Auto) 0.4 L Baso % (Auto) 0.7 Neut # (Auto) 4400 Lymph # (Auto) 900 L [place] # (Auto) 400 Eos # (Auto) 0 Baso # (Auto) 0 Sodium 139 135 L Potassium 3.7 3.6 Chloride 110 H 107 Carbon Dioxide 25 24 BUN 10 10 Creatinine 0.68 0.68 Estimated GFR > 60.0 > 60.0 BUN/Creatinine Ratio 14.7 14.7 Glucose 84 85 Calcium 8.2 L 8.1 L PFSH Medical History (Updated 03/10/21 @ 21:59 by ERICKA Cali) Down's syndrome Hypothyroidism Family History (Updated 03/10/21 @ 23:06 by ERICKA Cali) Father Pancreatic cancer Lung cancer Other Adopted Social History household members: caregiver Smoking Status: Never smoker alcohol intake: never Assessment & Plan Assessment & Plan narrative: Assessment: 1. RML/RLL aspiration pneumonia 2. UTI, Enterococcus 3. Hx of Down syndrome 4. Hx of hypothyroidism Plan: 1. As demonstrated on CXR. IV Levofloxacin 750 mg daily on-board, started Mar 11. Leukocytosis improving. Pending swallow evaluation. 2. Susceptible to fluoroquinolones. IV Levofloxacin on-board. 3. Patient lives in a nursing home, [facility]. 4. Home levothyroxine on hold currently, pending swallow evaluation, per problem 1. VTE prophylaxis: Lovenox 30 mg daily Disposition: Likely returning to nursing home, once swallow evaluation completed Time Spent With Patient Critical Care time: I spent a total of [] minutes of critical care time on this patient's care today; this time is exclusive of procedural time. Quality VTE Deep Vein Thrombosis/Pulmonary Embolism Present on Admission: No
[2021-03-12] MEDS: levoFLOXacin 750 MG/150 ML PIGGYBACK 100 MG IV (19:14)
[2021-03-13] MEDS: BISACODYL 10 MG SUPP PR (03:29)
[2021-03-13 03:38] VITALS: PULSE 75; RESP 18; TEMP 37; O2SAT 95
--- NOTE | 2021-03-13 03:55 | PC.NURSE ---
Pt more relax tonight. Has had 2 medium hard bowel movement. PT still has stool on his rectal bulb. pt given a dulcolax suppository, along with prune Juice.
[2021-03-13] MEDS: PANTOPRAZOLE DR 40 MG TABLET PO (06:30)
[2021-03-13] MEDS: LEVOTHYROXINE 75 MCG TABLET 37.5 MCG PO (06:30)
[2021-03-13 07:51] LABS: Add Manual Diff / Slide Review NO; Basophils Absolute Auto 0 /uL (0-100); Basophils Percent Auto 0.9 % (0-2); Eosinophils Absolute Auto 0 /uL (0-450); Eosinophils Percent Auto 0.5 % (2-4); Hematocrit 31.7 % (41-53); Hemoglobin 11.1 g/dL (13.5-17.5); Lymphocytes Absolute Auto 900 /uL (1100-4500); Lymphocytes Percent Auto 26.4 % (25-40); Mean Corpuscular HGB Conc 35.1 % (30-36); Mean Corpuscular Hemoglobin 37.7 PG (26-34); Mean Corpuscular Volume 107.3 fL (80-100); Monocytes Absolute Auto 600 /uL (0-900); Neutrophils Absolute Auto 1900 /uL (1500-7000); Neutrophils Percent Auto 56.2 % (50-75); Platelet Count 139 X10^3/uL (150-400); Red Blood Cell Count 2.95 X10^6/uL (4.5-5.9); Red Cell Distribution Width 14.8 % (11.6-14.8); White Blood Cell Count 3.4 X10^3/uL (4.5-11.0)
[2021-03-13] MEDS: ENOXAPARIN 30 MG/0.3 ML SYRINGE SUBCUT (08:22)
[2021-03-13] MEDS: SODIUM CHLORIDE 0.9% FLUSH 10 ML IV (08:24)
[2021-03-13 09:09] VITALS: PULSE 70; RESP 18; TEMP 37.9; O2SAT 92
--- NOTE | 2021-03-13 09:56 | ST.IPDYTX ---
Visit Care Team Role Provider Type Abi Reynolds DO Emergency Provider Physician Referring Provider Specialty: Emergency Medicine Address: [address] [place] [address], [id number] Email: [email or web address] Admit Provider Physician Attending Provider Specialty: Internal Medicine Address: [address] [place] [address], [id number] Email: [email or web address] RADIATION THERAPIST Dysphagia Treatment LEAD RADIATION THERAPIST Dysphagia Treatment Start: 03/12/21 13:33 Freq: Status: Active Protocol: Document 03/13/21 09:47 ZS (Rec: 03/13/21 09:56 ZS [id number]) Dysphagia Treatment Session Time Visit Start Time 09:00 Visit Stop Time 09:15 Total Visit Minutes 15 Setting Assessment Location Acute Care Visit Type Note Type Treatment Note Patient Information Identification Type Name,ID Wristband Subjective Observations Edgar was seated upright in bed and nursing was preparing to feed him his morning meal. Edgar was awake, alert, and cooperative. Treatment Liquids Trialed Thin Solids Trialed Puree Administration Type Tea Spoon,Straw,Dependent Feeding Oral Strategies Upright at 90 degrees, Controlled Bite/Sip Size Pharyngeal Strategies Sitting Upright (90 deg),Small Bites and Sips Treatment Activities Observed nursing feed Edgar his morning meal (cream of wheat, blended egg, apple sauce, and apple juice). Assessment Patient Response to Treatment Good Rehab Potential Good Assessment of Improvement Edgar ate 5 spoonfuls of cream of wheat and 3 drinks of apple juice. He closed his lips around the spoon, demonstrated minimal anterior spillage, and good a/p propulsion of bolus. Minimal to no residue noted following swallows and no overt signs or symptoms of aspiration observed. Edgar demonstrated some difficulty with straw positioning, taking most of the straw into his mouth. With assistance from nursing, Edgar found a more anterior placement for straw. Edgar is back to his reported baseline and is demonstrating no difficulty at this level. Discharging from speech therapy at this time as Edgar has returned to baseline ability. Diet Recommendations Recommendations Continue Current Diet Liquids Order Thin Diet Order Dysphagia Blenderized Medication Recommendations Crushed in Carrier Additional Dietary Needs 1:1 Assistance,Reminders to Use Strategies Aspiration Precautions Recommended Precautions Upright at 90 Degrees,Small Bites/Sips Treatment Plan Placement Recommendation after Discharge Halfway Facility,[facility] Appropriate for Continued Therapy No Therapy Recommendations Discharging from speech therapy as Edgar has returned to baseline ability and demonstrates no overt signs/ symptoms of aspiration at this level.
--- NOTE | 2021-03-13 10:42 | CM.DPC ---
Addendum entered by Jolynn Garner R.N. 03/13/21 13:49: Patient unable to sit up, he is contracted and flailing. Let the driver license technician know that this manager rn case would have to call ambulance transfer. Called BLS, and set up brass pickler, letting them know that patient is Medicaid. Had Dr. Franklin sign BLS form, and completed. Placed in folder by chart with POLST form attached, and face sheet. knitting supervisor will be 1430, updated white board at main nurses station and nurse, Evelin. Addendum entered by Jolynn Garner R.N. 03/13/21 11:29: Had Dr. Franklin sign orders, and prescription. Faxed them over to [facility]. Adithya at [employer] conirmed brass pickler time of 1400. Updated nurse, Evelin, and white board at main nurses station. Called patient's mother, Robin, and updated her. She lives in [place] and has no power, and will not be able to come to this area today, but hopefully at [facility] tomorrow. Let Sara know that there will be a prescription for an antibiotic for patient. Original Note: DCP Cont: Dr. Franklin indicated during team rounds that patient is ready for discharge, he will be going home with oral antibiotics. Called Sara at [facility] to let her know. She indicated that they do not provide transportation, so this partner integration planner will use Medicaid transport. Adithya from Medicaid transport just called back, and received the faxed form. He is working on transportation and will call this partner integration planner back with a time. As soon as the orders are in, will fax them over to Sara and update her of time of pick upl P: Patient is supposed to be discharged today on oral antibiotics. Sara's fax number is: [phone]. Awaiting response from Medicaid transport and orders. Jolynn Garner RN/Radio Interference Investigator
--- NOTE | 2021-03-13 16:09 | PC.NURSE ---
Transfer: Pt transfered back to [facility] facility. They know he has a aldridge in place. Did try a wheelchair first but pt is so contractured he would be high risk to fall out of same. Report given to transfer crew. Ms Morales was called at [facility] and she reports pt is doing much better and her questions were answered. She had no concerns about his aldridge. She can call back anytime.
--- NOTE | 2021-03-13 16:45 | PM.PN.1 ---
Subjective Subjective Interval history: Patient is non-verbal with me this morning, but more interactive in terms of his facial expressions and mannerisms than days prior. He appears to be feeling well and happier. Exam Vital Signs (past 8 hours): - 03/13/21 09:09 Temperature 100.2 F H Pulse Rate 70 Respiratory Rate 18 Pulse Oximetry 92 Oxygen Delivery Method Room Air Oxygen Flow Rate 0 Narrative Exam Narrative: Const Other: Laying in bed comfortably upon entering the room, in no apparent acute distress. Eyes Other: No scleral icterus appreciated. Resp Other: Rhonchi appreciated to right mid-axillary line. No adventitious breath sounds appreciated otherwise. Cardio Other: Regular rate and rhythm. S1 and S2 heart sounds auscultated with no extra heart sounds or murmurs appreciated. No peripheral edema noted. GI Other: Soft, non-distended, non-tender. Bowel sounds present. Skin Other: No kaye skin lesions/abnormalities appreciated. Objective Labs Result Diagrams: 03/13/21 05:28 03/12/21 06:50 Labs: Laboratory Results - last 24 hr 03/13/21 05:28 WBC 3.4 L RBC 2.95 L Hgb 11.1 L Hct 31.7 L MCV 107.3 H MCH 37.7 H MCHC 35.1 RDW 14.8 Plt Count 139 L Neut % (Auto) 56.2 D Lymph % (Auto) 26.4 [place] % (Auto) 16.0 H Eos % (Auto) 0.5 L Baso % (Auto) 0.9 Neut # (Auto) 1900 Lymph # (Auto) 900 L [place] # (Auto) 600 Eos # (Auto) 0 Baso # (Auto) 0 PFSH Medical History (Updated 03/10/21 @ 21:59 by ERICKA Cali) Down's syndrome Hypothyroidism Family History (Updated 03/10/21 @ 23:06 by ERICKA Cali) Father Pancreatic cancer Lung cancer Other Adopted Social History household members: caregiver Smoking Status: Never smoker alcohol intake: never Assessment & Plan Assessment & Plan narrative: Assessment: 1. RML/RLL aspiration pneumonia 2. UTI, Enterococcus 3. Hx of Down syndrome 4. Hx of hypothyroidism Plan: 1. As demonstrated on CXR. Will transition IV levofloxacin to PO, as patient passed his swallow evaluation. Patient is to complete 7 more days of PO antibiotic therapy. 2. Susceptible to fluoroquinolones. PO Levofloxacin on-board. 3. Patient lives in a jail, [facility], and is to return there today. 4. Will resume home levothyroxine on discharge. VTE prophylaxis: Lovenox 30 mg daily Disposition: Returning to jail today with above plan Time Spent With Patient Critical Care time: I spent a total of [] minutes of critical care time on this patient's care today; this time is exclusive of procedural time. Quality VTE Deep Vein Thrombosis/Pulmonary Embolism Present on Admission: No
--- NOTE | 2021-03-13 16:50 | P.DS_ITS ---
History of Present Illness History of Present Illness Chief complaint: low bp,lethargy Narrative: 55yo male with a hx of Down Syndrome that presented in an altered mental and physical state compared to baseline. The pt lives in an adult usp, [facility]. He initially presented with sepsis, likely secondary to RML/RLL aspiration pneumonia, and UTI. Urine culture grew Enterococcus, susceptible to levofloxacin. The patient clinically improved on IV levofloxacin. He passed a swallow evaluation, and was then transitioned to PO levofloxacin. He will complete a total of 10 days of abx therapy. Discharge Providers Provider Date of admission: 03/10/21 20:56 Discharge Date: 03/13/21 Consults: 03/11/21 10:17 Consult to Speech Therapy Evaluate & Treat Comment: Physician Instructions: Evaluate and treat 03/13/21 12:19 Consult to Home Health Routine Comment: Reason For Exam: Home Health senior safety management consultant provider: Kaelyn Franklin MD Summary Hospital Course Discharge Diagnosis: 1. Sepsis, likely secondary to RML/RLL aspiration pneumonia and UTI, resolved 2. RML/RLL aspiration pneumonia, improved 3. UTI, Enterococcus, improved 4. Hx of Down syndrome 5. Hx of hypothyroidism Hospital Course: 55yo male with a hx of Down Syndrome that presented in an altered mental and physical state compared to baseline. The pt lives in an adult usp, [facility]. He initially presented with sepsis, likely secondary to RML/RLL aspiration pneumonia, and UTI. Urine culture grew Enterococcus, susceptible to levofloxacin. The patient clinically improved on IV levofloxacin. He passed a swallow evaluation, and was then transitioned to PO levofloxacin. He will complete a total of 10 days of abx therapy. Exam Vital Signs (past 8 hours): - 03/13/21 09:09 Temperature 100.2 F H Pulse Rate 70 Respiratory Rate 18 Pulse Oximetry 92 Oxygen Delivery Method Room Air Oxygen Flow Rate 0 Narrative Exam Narrative: Const Other: Laying in bed comfortably upon entering the room, in no apparent acute distress. Eyes Other: No scleral icterus appreciated. Resp Other: Rhonchi appreciated to right mid-axillary line. No adventitious breath sounds appreciated otherwise. Cardio Other: Regular rate and rhythm. S1 and S2 heart sounds auscultated with no extra heart sounds or murmurs appreciated. No peripheral edema noted. GI Other: Soft, non-distended, non-tender. Bowel sounds present. Skin Other: No kaye skin lesions/abnormalities appreciated. Objective Labs Result Diagrams: 03/13/21 05:28 03/12/21 06:50 Labs: Laboratory Results - last 24 hr 03/13/21 05:28 WBC 3.4 L RBC 2.95 L Hgb 11.1 L Hct 31.7 L MCV 107.3 H MCH 37.7 H MCHC 35.1 RDW 14.8 Plt Count 139 L Neut % (Auto) 56.2 D Lymph % (Auto) 26.4 [place] % (Auto) 16.0 H Eos % (Auto) 0.5 L Baso % (Auto) 0.9 Neut # (Auto) 1900 Lymph # (Auto) 900 L [place] # (Auto) 600 Eos # (Auto) 0 Baso # (Auto) 0 PFSH Medical History (Updated 03/10/21 @ 21:59 by ERICKA Cali) Down's syndrome Hypothyroidism Family History (Updated 03/10/21 @ 23:06 by ERICKA Cali) Father Pancreatic cancer Lung cancer Other Adopted Social History household members: caregiver Smoking Status: Never smoker alcohol intake: never Discharge Assessment & Plan Assessment and Plan Assessment: Assessment: 1. Sepsis, likely secondary to RML/RLL aspiration pneumonia and UTI, resolved 2. RML/RLL aspiration pneumonia 3. UTI, Enterococcus 4. Hx of Down syndrome 5. Hx of hypothyroidism Plan of Treatment: Plan: 1. The patient initially presented with sepsis, likely secondary to problems 2 and 3, and this resolved with IV antibiotics and IV fluid resuscitation. 2. As demonstrated on CXR. Will transition IV levofloxacin to PO, as patient passed his swallow evaluation. Patient is to complete 7 more ays of PO antibiotic therapy. 3. Susceptible to fluoroquinolones. PO Levofloxacin on-board. 4. Patient lives in a [facility], [facility], and is to return there today. 5. Will resume home levothyroxine on discharge. Disposition: Returning to usp today with above plan Discharge Plan Discharge Plan Patient Disposition: Assisted Living Other facility: [facility] Nursing Discharge Comment: Bruno catheter placed 03/10/21 due to acute urinary retention. Discharge orders & Medications Discharge Orders: Discharge (Order); Ordered 03/13/21 Ordered By: Kaelyn Franklin Prescriptions: New levofloxacin 750 mg tablet 750 mg PO DAILY Qty: 7 0RF Continued cyanocobalamin (vitamin B-12) [Vitamin B-12] 250 mcg Tablet 250 mcg PO DAILY 0RF levothyroxine [Synthroid] 75 mcg Tablet 150 mcg PO WEEKLY 0RF Rx Instructions: takes 2 tabs on friday only levothyroxine [Synthroid] 75 mcg Tablet 75 mcg PO DAILY 0RF lorazepam [Ativan] 0.5 mg Tablet 0.5 mg PO BEDTIME PRN (Reason: Sleep) 0RF docusate sodium [Colace] 100 mg Capsule 100 mg PO DAILY 0RF multivitamin with minerals [Men's One Daily] Tablet 1 tab PO DAILY 0RF Visit Report/Discharge Packet Instructions: How to Care for Your Bruno Catheter -- Male, DI for Pneumonia -- Adult, DI for Urinary Tract Infection (UTI) Quality VTE Deep Vein Thrombosis/Pulmonary Embolism Present on Admission: No
== END 2021-03-13 14:47 | DRG 871 ==
LOC: ED 20:55 → AC 20:57
PROVIDERS: Emergency Medicine; Admitting Provider Nurse Practitioner Family; Emergency Provider Emergency Medicine; Referring Provider Emergency Medicine; Visit Provider Nurse Practitioner Family
DX: A41.9 Sepsis, unspecified organism (principal); J69.0 Pneumonitis due to inhalation of food and vomit; N39.0 Urinary tract infection, site not specified; R65.20 Severe sepsis without septic shock; Q90.9 Down syndrome, unspecified; E03.9 Hypothyroidism, unspecified; I95.9 Hypotension, unspecified; B95.2 Enterococcus as the cause of diseases classified elsewhere; Z20.822 Contact with and (suspected) exposure to COVID-19; Z66 Do not resuscitate
CPT/HCPCS: 36415; 70450; 71045; 80048; 80053; 81015; 83605; 83690; 84145; 84439; 84443; 85025; 87040; 87077; 87086; 87186; 87635; 92526; 92610; 93005; 93010; 94760; 94762; 96361; 96365; 96366; 99285; C9803; C9113; J1650; J1956; J2060

== ENCOUNTER → 2021-03-20 14:10 | Outpatient (ROUT) | payer OTHER, MEDICAID, SELFPAY ==
[2021-03-10 22:29] VITALS: BMI 15.5
[2021-03-20 15:09] LABS: Thyroid Stimulating Hormone 14.6 uIU/mL (0.47-4.68)
== END ==
PROVIDERS: Visit Provider Internal Medicine
DX: Z12.5 Encounter for screening for malignant neoplasm of prostate (principal); E03.9 Hypothyroidism, unspecified
CPT/HCPCS: 84153; 84443